=== PATIENT | male | born 1935 | race Caucasian/White ===

== ENCOUNTER 2017-06-13 17:46 | Emergency (ER) | payer OTHER, MEDICARE ==
[2017-06-13] MEDS ORDERED: Albuterol/Ipratropium 3.0-0.5 MG/3 ML Neb Soln NEB ONE (17:48)
--- NOTE | 2017-06-13 17:59 | EDM.PDOC ---
ED HPI GENERAL MEDICAL PROBLEM - General Stated Complaint: SOB Time Seen by Provider: 06/13/17 17:46 Source of Information: Reports: Patient History Limitations: Reports: No Limitations - History of Present Illness INITIAL COMMENTS - FREE TEXT/NARRATIVE: This 81 yo male patient reports to the ED with increased shortness of breath. The patient was brought to the ED by [facility] with [facility] intercept. EMS reports that the patient reported increased shortness of breath that started this afternoon at about 1430. The patient's reported to EMS that the patient had an "episode" last night which resolved on its own, but started again this afternoon. EMS reports that the patient's oxygen saturation was 74% upon arrival at the residence. The patient had a Duoneb treatment enroute provided by EMS. EMS reported that the patient was in sinus tach during transport. The patient reports that he has had increased shortness of breath over the past couple of weeks with significantly increased symptoms this afternoon. [facility] Onset: Gradual Duration: Day(s):, Constant, Getting Worse Location: Reports: Chest (short of breath) Quality: Reports: Other Severity: Severe Improves with: Reports: Medication Worsens with: Reports: Movement Context: Reports: Other Associated Symptoms: Reports: Cough, Shortness of Breath, Weakness Treatments [employer]: Reports: Breathing Treatments (Duoneb provided by EMS) - Related Data Allergies Allergy/AdvReac Type Severity Reaction Status Date / Time No Known Allergies Allergy Verified 06/13/17 18:03 Home Meds: Home Meds Metoprolol Tartrate 25 mg PO BEDTIME 11/13/13 [History] Past Medical History HEENT History: Reports: Cataract, Impaired Vision Oncologic (Cancer) History: Reports: Other (See Below) 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 - Past Surgical History Cardiovascular Surgical History: Reports: Carotid Endarterectomy Dermatological Surgical History: Reports: Skin Biopsy, Skin Graft, Other (See Below) Social & Family History - Family History Family Medical History: Noncontributory - Tobacco Use Smoking Status *Q: Former Smoker Years of Tobacco use: 32 Used Tobacco, but Quit: Yes Month/Year Tobacco Last Used: march Second Hand Smoke Exposure: No - Caffeine Use Caffeine Use: Reports: Coffee - Alcohol Use Days Per Week of Alcohol Use: 0 - Recreational Drug Use Recreational Drug Use: No Drug Use in Last 12 Months: No ED ROS GENERAL - Review of Systems Review Of Systems: ROS reveals no pertinent complaints other than HPI. ED EXAM, GENERAL - Physical Exam Exam: Not Obtained Exam Limited By: No Limitations General Appearance: Alert, WD/WN, Moderate Distress, Thin Eye Exam: Bilateral Eye: EOMI, Normal Inspection, PERRL Ears: Normal External Exam, Normal Canal, Hearing Grossly Normal, Normal TMs Nose: Normal Inspection, Normal Mucosa, No Blood Throat/Mouth: Normal Inspection, Normal Lips, Normal Teeth, Normal Gums, Normal Oropharynx, Normal Voice, No Airway Compromise Neck: Normal Inspection, Supple, Non-Tender, Full Range of Motion Respiratory/Chest: Decreased Breath Sounds, Rhonchi (diffuse), Wheezing Cardiovascular: No Edema, No Gallop, No JVD, No Murmur, No Rub, Tachycardia GI/Abdominal: Normal Bowel Sounds, Soft, Non-Tender, No Organomegaly, No Distention, No Abnormal Bruit, No Mass (Male) Exam: Deferred Rectal (Males) Exam: Deferred Back Exam: Normal Inspection, Full Range of Motion, NT Extremities: Normal Inspection, Normal Range of Motion, Non-Tender, Normal Capillary Refill, No Pedal Edema Neurological: Alert, Oriented, CN II-XII Intact, Normal Cognition, Normal Gait, Normal Reflexes, No Motor/Sensory Deficits Psychiatric: Normal Affect, Normal Mood Skin Exam: Warm, Dry, Intact, Normal Color, No Rash Lymphatic: No Adenopathy Course - Vital Signs Last Recorded V/S: Last Vital Signs Temp 36.6 C 06/13/17 18:04 Pulse 97 06/13/17 18:49 Resp 28 H 06/13/17 18:04 BP 119/88 06/13/17 18:04 Pulse Ox 100 06/13/17 18:04 - Orders/Labs/Meds Orders: Active Orders 24 hr Category Date Time Status EKG Documentation Completion [RC] URGENT Care 06/13/17 17:48 Active RT Aerosol Therapy [RC] ASDIRECTED Care 06/13/17 17:48 Active RT Aerosol Therapy [RC] ASDIRECTED Care 06/13/17 18:32 Ordered Chest 1V Frontal [CR] Urgent Exams 06/13/17 17:48 Taken CULTURE BLOOD [BC] Stat Lab 06/13/17 17:57 Received CULTURE BLOOD [BC] Stat Lab 06/13/17 18:21 Results INR,PT,PROTHROMBIN TIME [COAG] Stat Lab 06/13/17 18:50 Ordered Heparin Sodium/D5W [Heparin 25,000 Units in D5W 500 ML] Med 06/13/17 19:00 Ordered 25,000 units in 500 ml IV TITRATE Blood Culture x2 Reflex Set [OM.PC] Stat Oth 06/13/17 17:49 Ordered Medication Orders Heparin Sodium/Dextrose (Heparin 25,000 Units In D5w 500 Ml) 25,000 units in 500 mls @ 15.241 mls/hr IV TITRATE ALE PRN Reason: 12 UNITS/KG/HR Labs: Laboratory Tests 06/13/17 06/13/17 06/13/17 Range/Units 17:57 17:57 17:57 WBC 16.3 H (5.0-10.0) 10^3/uL RBC 4.86 (4.6-6.2) 10^6/uL Hgb 14.9 (14.0-18.0) g/dL Hct 44.3 (40.0-54.0) % MCV 91.2 (80-100) fL MCH 30.7 (27.0-34.0) pg MCHC 33.6 (33.0-35.0) g/dL Plt Count 271 (150-450) 10^3/uL Neut % (Auto) 80.9 H (42.2-75.2) % Lymph % (Auto) 9.6 L (20.5-50.1) % [place] % (Auto) 8.5 H (2-8) % Eos % (Auto) 0.7 L (1.0-3.0) % Baso % (Auto) 0.3 (0.0-1.0) % Sodium 136 (135-145) mmol/L Potassium 5.2 H (3.6-5.0) mmol/L Chloride 100 L (101-111) mmol/L Carbon Dioxide 24.0 (21.0-31.0) mmol/L Anion Gap 17.2 BUN 39 H (7-18) mg/dL Creatinine 2.1 H (0.6-1.3) mg/dL Est Cr Clr Drug Dosing 23.94 mL/min Estimated GFR (MDRD) 30 BUN/Creatinine Ratio 18.57 Glucose 199 H (74-105) mg/dL Lactic Acid 2.5 H (0.5-2.2) mmol/L Calcium 8.9 (8.4-10.2) mg/dl Total Bilirubin 0.6 (0.2-1.0) mg/dL AST 77 H (10-42) IU/L ALT 21 (10-60) IU/L Alkaline Phosphatase 75 (42-121) IU/L Troponin I 7.86 H* (0.00-0.02) ng/ml B-Natriuretic Peptide 1360 H (0-100) pg/ml Total Protein 7.3 (6.7-8.2) g/dl Albumin 3.6 (3.2-5.5) g/dl Globulin 3.7 Albumin/Globulin Ratio 0.97 Meds: Medications Generic Name Dose Route Start Last Admin Trade Name Freq PRN Reason Stop Dose Admin Heparin Sodium/Dextrose 25,000 units in 500 mls @ 15.241 mls/hr 06/13/17 19: 00 Heparin 25,000 Units In D5w 500 Ml IV TITRATE ALE 12 UNITS/KG/HR Discontinued Medications Generic Name Dose Route Start Last Admin Trade Name Freq PRN Reason Stop Dose Admin Albuterol 2.5 mg 06/13/17 18:32 06/13/17 18:40 Proventil Neb Soln NEB 06/13/17 18:33 2.5 mg ONETIME ONE Administration Albuterol/Ipratropium 3 ml 06/13/17 17:48 06/13/17 18:20 Duoneb 3.0-0.5 Mg/3 Ml NEB 06/13/17 17:49 3 ml ONETIME ONE Administration Heparin Sodium/Dextrose Confirm 06/13/17 18:52 Heparin 25,000 Units In D5w 500 Ml Administered 06/13/17 18:53 Dose 500 mls @ as directed .ROUTE .STK-MED ONE - Re-Assessments/Exams Free Text/Narrative Re-Assessment/Exam: 06/13/17 19:01 At 1833, [facility] have [facility] patient transported to the nearest appropriate facility. Departure - Departure Time of Disposition: 19:02 Disposition: DC/Tfer to Acute Hospital 02 Condition: Serious Clinical Impression: Acute coronary syndrome, Elevated troponin Respiratory failure Qualifiers: Chronicity: acute Respiratory failure complication: hypoxia Qualified Code(s): J96.01 - Acute respiratory failure with hypoxia Pneumonia Qualifiers: Pneumonia type: due to unspecified organism Laterality: bilateral Lung location : unspecified part of lung Qualified Code(s): J18.9 - Pneumonia, unspecified organism - Discharge Information Forms: Interfacility Transfer EMTALA Care Plan Goals: Discussed the history, examination, lab, EKG, x-ray and treatments with Dr. Traylor (Hospitalist with [facility] ([place], [place])). Dr. Traylor accepted the patient for continued evaluation and management. Dr. Traylor requested a Heparin drip be started prior to transport. The patient will be transported by [facility]. - My Orders Last 24 Hours: My Active Orders 06/13/17 17:48 EKG Documentation Completion [RC] URGENT RT Aerosol Therapy [RC] ASDIRECTED Chest 1V Frontal [CR] Urgent 06/13/17 17:49 Blood Culture x2 Reflex Set [OM.PC] Stat 06/13/17 17:57 CULTURE BLOOD [BC] Stat 06/13/17 18:21 CULTURE BLOOD [BC] Stat 06/13/17 18:32 RT Aerosol Therapy [RC] ASDIRECTED 06/13/17 18:50 INR,PT,PROTHROMBIN TIME [COAG] Stat 06/13/17 19:00 Heparin Sodium/D5W [Heparin 25,000 Units in D5W 500 ML] 25,000 units in 500 ml IV TITRATE - Assessment/Plan Last 24 Hours: My Active Orders 06/13/17 17:48 EKG Documentation Completion [RC] URGENT RT Aerosol Therapy [RC] ASDIRECTED Chest 1V Frontal [CR] Urgent 06/13/17 17:49 Blood Culture x2 Reflex Set [OM.PC] Stat 06/13/17 17:57 CULTURE BLOOD [BC] Stat 06/13/17 18:21 CULTURE BLOOD [BC] Stat 06/13/17 18:32 RT Aerosol Therapy [RC] ASDIRECTED 06/13/17 18:50 INR,PT,PROTHROMBIN TIME [COAG] Stat 06/13/17 19:00 Heparin Sodium/D5W [Heparin 25,000 Units in D5W 500 ML] 25,000 units in 500 ml IV TITRATE
[2017-06-13 18:13] VITALS: BP 119/88
[2017-06-13] MEDS ORDERED: Albuterol 0.083% 2.5 MG/3 ML Neb Soln NEB ONE (18:32)
[2017-06-13] MEDS ORDERED: Heparin Sodium/D5W 500 ML ONE (18:52)
[2017-06-13] MEDS ORDERED: Heparin Sodium/D5W 25,000 UNITS/500 ML BAG IV SCH (19:00)
[2017-06-13] MEDS ORDERED: cefTRIAXone 1 GM Vial IVPUSH ONE (19:10)
--- NOTE | 2017-06-14 19:56 | EKG ---
06/13/2017 - DENISE TAYLOR - TIME: 1754 hours. FINDINGS: EKG shows sinus tachycardia. There is diffuse ST-segment abnormality. Question of the inferior wall ST-elevation in leads II and III. [facility] /[id number]
== END 2017-06-13 19:45 ==
LOC: DL.ED 17:46
DX: I24.9 Acute ischemic heart disease, unspecified (principal); J18.9 Pneumonia, unspecified organism; J96.01 Acute respiratory failure with hypoxia; Z87.891 Personal history of nicotine dependence
CPT/HCPCS: 36415; 71045; 80053; 83605; 83880; 84484; 85025; 85610; 87040; 93005; 93010; 94640; 96365; 96375; 99285; J0696; J1644; J7620-GY